=== PATIENT | male | born 1975 | race Caucasian/White ===

== ENCOUNTER 2022-01-10 21:30 | Emergency (ER) | payer BC ==
[2022-01-10] MEDS ORDERED: Lidocaine 1% 5 ML VIAL INJECT ONE (21:51)
[2022-01-10] MEDS ORDERED: Bupivacaine 0.25% 10 ML SDV INJECT ONE (21:52)
[2022-01-10] MEDS ORDERED: Bacitracin Oint 1 GM U/D Packet TOP ONE (22:16)
== END 2022-01-10 22:34 | disposition home or self-care (01) ==
LOC: MW.ED 21:30
DX: S61.412A Laceration without foreign body of left hand, initial encounter (principal); W26.0XXA Contact with knife, initial encounter
CPT/HCPCS: 12001; 99282; J3490

== ENCOUNTER 2022-07-19 10:32 | Emergency (ER) | payer BC ==
[2022-07-19 11:01] LABS: BASOPHILS PERCENT AUTO 0.1 % (0.0-1.5); HEMOGLOBIN 13.8 g/dL (13.0-17.0); LYMPHOCYTES ABSOLUTE AUTO 0.3 K/uL (0.6-2.4); LYMPHOCYTES PERCENT AUTO 2.3 % (16.0-40.0); MEAN CORPUSCULAR HEMOGLOBIN 28.8 pg (27.0-32.0); MEAN CORPUSCULAR HGB CONC 35.4 g/dL (31.0-37.0); MEAN CORPUSCULAR VOLUME 81.3 fL (80.0-98.0); MONOCYTES ABSOLUTE AUTO 0.3 K/uL (0.0-0.8); MONOCYTES PERCENT AUTO 2.1 % (0.0-15.0); NEUTROPHILS ABSOLUTE AUTO 11.9 K/uL (1.4-5.7); NEUTROPHILS PERCENT AUTO 95.5 % (48.0-80.0); NRBC ABSOLUTE 0 K/uL; PLATELET COUNT,PLT 114 K/uL (150-400); WHITE BLOOD CELL COUNT,WBC 12.46 K/uL (4.0-11.0)
[2022-07-19 11:24] LABS: A/G RATIO 0.8 (0.9-1.6); ALBUMIN 3.3 g/dL (3.4-5.0); BILIRUBIN TOTAL 1.2 mg/dL (0.2-1.0); CALCIUM 7.9 mg/dL (8.5-10.1); CARBON DIOXIDE,CO2 22.4 mmol/L (21.0-32.0); CREATININE 1.4 mg/dL (0.8-1.3); EST CRCL DRUG DOSING (CG) 68.73 mL/min; POTASSIUM,K 3.2 mmol/L (3.5-5.1); PROTEIN TOTAL,TP 7.3 g/dL (6.4-8.2)
[2022-07-19 11:26] LABS: LACTIC ACID 1.7 mmol/L (0.4-2.0)
[2022-07-19] MEDS ORDERED: Clindamycin HCl 150 MG Cap PO ONE (11:38)
[2022-07-19] MEDS ORDERED: cefTRIAXone 1 GM Vial IM ONE (12:07)
== END 2022-07-19 12:41 | disposition home or self-care (01) ==
LOC: MW.ED 10:32
DX: L03.115 Cellulitis of right lower limb (principal)
CPT/HCPCS: 36415; 73620; 80053; 83605; 85025; 87040; 96372; 99283; A9270; J0696

== ENCOUNTER 2024-09-23 06:52 | Day surgery (SDC) | payer BC ==
[2024-09-23] MEDS ORDERED: Propofol 200 MG/20 ML SDV ONE (07:08)
[2024-09-23] MEDS: Lactated Ringers 1,000 ML IV SCH (07:14)
[2024-09-23] MEDS ORDERED: Lactated Ringers 1,000 ML IV SCH (08:45)
== END 2024-09-23 09:22 | disposition home or self-care (01) ==
LOC: MW.SDS 06:52
PROVIDERS: ATTEND Surgery
DX: Z12.11 Encounter for screening for malignant neoplasm of colon (principal); I51.7 Cardiomegaly; E66.9 Obesity, unspecified; F17.290 Nicotine dependence, other tobacco product, uncomplicated; Z68.34 Body mass index [BMI] 34.0-34.9, adult; Z79.899 Other long term (current) drug therapy
CPT/HCPCS: 45378; J2003; J2704; J7120